=== PATIENT | female | born 1970 | race Two or more races ===

== ENCOUNTER 2024-04-30 16:19 | Inpatient (IN) | payer MEDICAID ==
[~2024-04-30] VITALS: Ht 160 cm; Wt 56.9 kg
[~2024-04-30 16:19] MED LIST: METO25TA36 PO; PROP1TAB51 PO
[2024-04-30 16:49] LABS: Basophils # (auto) 0 10 ^3/uL (0-0.2); Basophils % (auto) 0.8 % (0.0-2.0); Eosinophils # (auto) 0.2 10 ^3/uL (0-0.8); Eosinophils % (auto) 3.5 % (0.0-7.0); Hematocrit 41.6 % (36.0-46.0); Hemoglobin 13.5 g/dL (12.2-16.2); Lymphocytes # (auto) 2.2 10 ^3/uL (0.4-5.4); Lymphocytes % (auto) 41.2 % (10.0-50.0); Mean Corpuscular Hemoglobin 27.6 pg (28.0-32.0); Mean Corpuscular Hgb Conc. 32.5 g/dL (32.0-36.0); Mean Corpuscular Volume 84.8 fL (80.0-100.0); Monocytes # (auto) 0.9 10 ^3/uL (0-1.3); Monocytes % (auto) 16.9 % (0.0-12.0); Neutrophils % (auto) 37.6 % (37.0-80.0); Nucleated Red Blood Cells % 0.1 %; Platelet Count (auto) 277 10^3/uL (140-450); White Blood Cell 5.3 10^3/uL (4.4-10.8)
--- NOTE | 2024-04-30 16:53 | ED.PDOC ---
HPI Comments 53y F who presents to the ED for chief complaint of chest pain. Pt states she has been have palpitations for the past 3-4 hours. Pt states she has been having these symptoms for the past 1 week intermittently. Pt states she was seen at 1 week prior and discharged. Pt states the following day, she started having symptoms and went to [facility] and states she was diagnosed with thyroid condition and given medications and discharged. Pt now in the ED, noted to be in AFIB per EKG with noted history of AFIB and states she is having palpitations now. Pt in the ED, has noted elevated heart rate of 134 in the ED with all other vitals in normal range. Pt otherwise denies any other symptoms at this time. Chief Complaint: Chest Pain Time Seen by MD: 16:46 Primary Care Provider: AVILA Ricks Notes: Medications, Allergies Allergies: Coded Allergies: Allopurinol (Verified Allergy, Unknown, 04/26/24) Home Meds Active Scripts Propranolol HCl (Propranolol Hydrochloride) 10 Mg Tab, 10 MG PO BID PRN for 30 Days, #60 TAB Prov:IGNACIO BERNAL 04/26/24 Metoprolol Succinate (Toprol Xl) 25 Mg Tab, 1 TAB PO DAILY, #90 TAB 1 Refill Prov:IGNACIO BERNAL 04/26/24 Information Source: Patient Mode of Arrival: Ambulatory Brought in by: self Past Medical History PAST MEDICAL HISTORY: AFIB, HTN Surgical History: Unknown 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 Family History Family History: Reviewed,noncontributory to illness Social History Smoker: Non-Smoker Alcohol: Denies ETOH Use Drugs: Denies Drug Use Lives In: Home Constitutional: denies: chills, diaphoresis, fatigue, fever, malaise, sweats, weakness, others EENTM: denies: blurred vision, double vision, ear bleeding, ear discharge, ear drainage, ear pain, ear ringing, eye pain, eye redness, hearing loss, mouth pain, mouth swelling, nasal discharge, nose bleeding, nose congestion, nose pain, photophobia, tearing, throat pain, throat swelling, voice changes, others Respiratory: denies: cough, hemoptysis, orthopnea, SOB at rest, shortness of breath, SOB with excertion, stridor, wheezing, others Cardiovascular: reports: chest pain; denies: dizzy spells, diaphoresis, Dyspnea on exertion, edema, irregular heart beat, left arm pain, lightheadedness, palpitations, PND, syncope, others Gastrointestinal: denies: abdomen distended, abdominal pain, blood streaked bowels, constipated, diarrhea, dysphagia, difficulty swallowing, hematemesis, melena, nausea, poor appetite, poor fluid intake, rectal bleeding, rectal pain, vomiting, others Genitourinary: denies: abnormal vagina bleeding, burning, dyspareunia, dysuria, flank pain, frequency, hematuria, incontinence, pain, , vagina discharge, urgency, others Neurological: denies: dizziness, fainting, headache, left sided numbness, left sided weakness, numbness, paresthesia, pre-existing deficit, right sided numbness, right sided weakness, seizure, speech problems, tingling, tremors, weakness, others Musculoskeletal: denies: back pain, gout, joint pain, joint swelling, muscle pain, muscle stiffness, neck pain, others Integumetry: denies: bruises, change in color, change in hair/nails, dryness, laceration, lesions, lumps, rash, wounds, others Allergic/Immunocompromised: denies: Difficulty Healing, Frequent Infections, Hives, Itching, others Hematologic/Lymphatic: denies: anemia, blood clots, easy bleeding, easy bruising, swollen glands, others Endocrine: denies: excessive hunger, excessive sweating, excessive thirst, excessive urination, flushing, intolerance to cold, intolerance to heat, unexplained weight gain, unexplained weight loss, others Psychiatric: denies: anxiety, bipolar disorder, depression, hopeless, panic disorder, schizophrenia, sleepless, suicidal, others All Other Systems: Reviewed and Negative Physical Exam General Appearance: Moderate Distress HEENT: Normal ENT Inspection, Pharynx Normal, TMs Normal Neck: Full Range of Motion, Non-Tender, Normal, Normal Inspection Respiratory: Chest Non-Tender, Lungs Clear, No Accessory Muscle Use, No Respiratory Distress, Normal Breath Sounds Cardiovascular: Tachycardia, Other (irregularly irregular) Breast Exam: Deferred Gastrointestinal: No Organomegaly, Non Tender, No Pulsatile Mass, Normal Bowel Sounds, Soft Genitalia: Deferred Pelvic: Deferred Rectal: Deferred Extremities: No calf tenderness, Normal capillary refill, Normal inspection, Normal range of motion, Non-tender, No pedal edema Musculoskeletal : Apperance: Normal Neurologic: Alert, software build engineer II-XII nml as Tested, No Motor Deficits, Normal Affect, Normal Mood, No Sensory Deficits Cerebellar Function: Normal Reflexes: Normal Skin: Dry, Normal Color, Warm Lymphatic: No Adenopathy Was a procedure done? Was a procedure done?: No CP Differential Dx Differential Diagnosis: A-fib, A-Flutter, Angina, Anxiety / Panic Attack, Atrial Dysrhythmia, PVC's X-Ray, Labs, Meds, VS Vital Signs Date Time Temp Pulse Resp B/P (MAP) Pulse Ox O2 Delivery O2 Flow Rate FiO2 04/30/24 17:19 136 04/30/24 17:15 65 16 97 Room Air* 0 21 04/30/24 17:13 65 04/30/24 17:13 65 16 107/85 (92) 97 04/30/24 16:28 134 04/30/24 16:23 98.3 72 22 124/60 (81) 100 Lab Test 04/30/24 17:47 04/30/24 16:36 Range/Units Troponin I High Sensitivity Pending 7 </=34 ng/L White Blood Count 5.3 4.4-10.8 10^3/uL Red Blood Count 4.90 4.0-5.20 10^6/uL Hemoglobin 13.5 12.2-16.2 g/dL Hematocrit 41.6 36.0-46.0 % Mean Corpuscular Volume 84.8 80.0-100.0 fL Mean Corpuscular Hemoglobin 27.6 L 28.0-32.0 pg Mean Corpuscular Hemoglobin Concent 32.5 32.0-36.0 g/dL Red Cell Distribution Width 14.0 11.8-14.3 % Platelet Count 277 140-450 10^3/uL Mean Platelet Volume 8.5 6.9-10.8 fL Neutrophils (%) (Auto) 37.6 37.0-80.0 % Lymphocytes (%) (Auto) 41.2 10.0-50.0 % Monocytes (%) (Auto) 16.9 H 0.0-12.0 % Eosinophils (%) (Auto) 3.5 0.0-7.0 % Basophils (%) (Auto) 0.8 0.0-2.0 % Neutrophils # (Auto) 2.0 1.6-8.6 10 ^3/uL Lymphocytes # (Auto) 2.2 0.4-5.4 10 ^3/uL Monocytes # (Auto) 0.9 0-1.3 10 ^3/uL Eosinophils # (Auto) 0.2 0-0.8 10 ^3/uL Basophils # (Auto) 0 0-0.2 10 ^3/uL Nucleated Red Blood Cells 0.1 % Sodium Level 144 136-145 mmol/L Potassium Level 4.6 3.5-5.1 mmol/L Chloride Level 110 H 98-107 mmol/L Carbon Dioxide Level 25 20-31 mmol/L Anion Gap 9 5-15 Blood Urea Nitrogen 16 9-23 mg/dL Creatinine 0.75 0.550-1.02 mg/dL Glomerular Filtration Rate Calc 96 >90 mL/min BUN/Creatinine Ratio 21.3 H 10.0-20.0 Serum Glucose 126 H 74-106 mg/dL Calcium Level 10.9 H 8.7-10.4 mg/dL Magnesium Level 2.1 1.6-2.6 mg/dL Total Bilirubin 0.7 0.2-1.0 mg/dL Aspartate Amino Transferase (AST) 25 13-40 U/L Alanine Aminotransferase (ALT) 40 7-40 U/L Alkaline Phosphatase 87 46-116 U/L Total Protein 6.8 5.7-8.2 g/dL Albumin 4.6 3.2-4.8 g/dL Current Medications Medications (Trade) Dose Ordered Sig/Karthik Route Start Time Stop Time Status Last Admin Sodium Chloride 1,000 ml @ 1,000 mls/hr Q1H ONCE IV 04/30/24 16:45 04/30/24 17:44 DC 04/30/24 17:[address] [address] Ph: [phone] DIAGNOSTIC IMAGING Diagnostic Imaging Report : [id number] Signed PATIENT: JULIET PRINCE: [id number] UNIT: [id number] : 1970 LOC: ER ROOM / BED: / AGE / SEX: 53 / F ADM STATUS: REG ER SERVICE [id number] ORDERING PHYSICIAN: ARA ANGELA MD PROCEDURE(s): CXRP - CHEST PORTABLE REASON: chest pain ORDER NUMBER(s): [id number], ACCESSION NUMBER(s): [id number] CHEST RADIOGRAPH Indication: chest pain Technique: Single frontal view of the chest was obtained COMPARISON: None FINDINGS: Lines and Tubes: None Lungs: Clear Pleura: No effusion. No pneumothorax. Cardiomediastinal contours: Unremarkable Bones: Unremarkable IMPRESSION: 1. No acute disease. ATED BY: GARRETT ABBOTT MD DICTATED DATE/TIME: 04/30/241700 SIGNED BY: GARRETT ABBOTT MD SIGNED DATE/TIME: 04/30/241700 CC: Time of 1ST Reevaluation: 17:15 Reevaluation 1ST: Unchanged Patient Education/Counseling: Diagnosis, Treatment Family Education/Counseling: No Family Present Departure 1 Departure Time of Disposition: 18:12 (Patient presented with chest pain that was concerning for possible STEMI, ACS, PE, Pneumonia, Muscle Strain, COPD, Dissection. Data: 1. I ordered and reviewed the result of at least 3 labs including a CBC, BMP, and Troponin. 2. I independently interpreted the following tests: EKG which shows atrial fibrillation and Chest X-ray which shows benign chest.Risk:This patient has a high risk of morbidity due to further diagnostic testing or treatment and may suffer from an acute cardiac or respiratory disorder. Workup reveals cardiac arrhythmia concerning for possible ACS and patient should be admitted for further workup and possible expert consultation. ) Impression: Primary Impression: Acute chest pain Additional Impressions: Atrial fibrillation Qualified Codes: I48.0 - Paroxysmal atrial fibrillation Palpitations Disposition: ADMITTED INPATIENT Admit to: Med Surg Condition: Serious Critical Care Note Critical Care Time?: Yes Critical care comment: Chest pain Authorized and Performed by: Ara Angela MD Total critical care time: Approximately 42 minutes Due to a high probability of clinically significant, life threatening deterioration, the patient required my highest level of preparedness to intervene emergently and I personally spent this critical care time directly and personally managing the patient. This critical care time included obtaining a history; examining the patient; pulse oximetry; ordering and review of studies; arranging urgent treatment with development of a management plan; evaluation of patient's response to treatment; frequent reassessment; and, discussions with other providers. This critical care time was performed to assess and manage the high probability of imminent, life-threatening deterioration that could result in multi-organ failure. It was exclusive of separately billable procedures and treating other patients and teaching time. Please see my other sections and the rest of the note for further information on patient assessment and treatment. Stability Stability form required: No Heart Score Heart Score: Heart Score Response (Comments) Value History Moderate Suspicious 1 EKG Repolarization Disturb 1 Age 45-64 1 Risk Factors 1 or 2 risk factors 1 Troponin 1-2 x's Normal limit 1 Total 5 I personally scribed for ARA ANGELA MD ([facility]) on 04/30/24 at 16:53. Electronically submitted by Carter Cruz ([email or web address]). I personally scribed for ARA ANGELA MD ([email or web address]) on 04/30/24 at 18:09. Electronically submitted by Carter Cruz ([email or web address]). ARA ANGELA MD Apr 30, 2024 16:53
[2024-04-30 17:03] LABS: Alanine Aminotransferase 40 U/L (7-40); Albumin 4.6 g/dL (3.2-4.8); Alkaline Phosphatase 87 U/L (46-116); Anion Gap 9 (5-15); Aspartate Aminotransferase 25 U/L (13-40); BUN/Creatinine Ratio 21.3 (10.0-20.0); Bilirubin, Total 0.7 mg/dL (0.2-1.0); Blood Urea Nitrogen 16 mg/dL (9-23); Calcium 10.9 mg/dL (8.7-10.4); Carbon Dioxide 25 mmol/L (20-31); Chloride 110 mmol/L (98-107); Glucose 126 mg/dL (74-106); Magnesium 2.1 mg/dL (1.6-2.6); Potassium 4.6 mmol/L (3.5-5.1); Sodium 144 mmol/L (136-145); Total Protein 6.8 g/dL (5.7-8.2)
--- NOTE | 2024-04-30 17:04 | DVH ---
CHEST RADIOGRAPH Indication: chest pain Technique: Single frontal view of the chest was obtained COMPARISON: None FINDINGS: Lines and Tubes: None Lungs: Clear Pleura: No effusion. No pneumothorax. Cardiomediastinal contours: Unremarkable Bones: Unremarkable IMPRESSION: 1. No acute disease.
[2024-04-30] MEDS: SODIUM CHLORIDE 0.9% 1,000 ML IV ONE (17:10)
[2024-04-30 17:15] VITALS: PULSE 65; RESP 16; O2SAT 97
--- NOTE | 2024-04-30 18:40 | ECG ---
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
[2024-04-30 20:35] VITALS: BP 123/60; PULSE 139; RESP 20; TEMP 97.5; O2SAT 98
[2024-04-30] MEDS ORDERED: ONDANSETRON HCL 4 MG/2 ML VIAL IV PRN (23:30)
[2024-04-30] MEDS ORDERED: MORPHINE SULFATE INJ 2 MG/ml SYRG IV PRN ×2 (23:30)
[2024-04-30] MEDS ORDERED: DOCUSATE SOD 100 MG CAP PO PRN (23:30)
[2024-04-30] MEDS ORDERED: NITROGLYCERIN 0.4 MG SL TAB SL PRN (23:30)
[2024-04-30] MEDS ORDERED: HYDROcodone-ACET 5/325MG TAB PO PRN (23:30)
--- NOTE | 2024-04-30 23:31 | DVHHP2 ---
History of Present Illness Reason for Visit: Acute chest pain History of Present Illness The patient is a 53-year-old female with past medical history of AFib and hypertension who presented to [facility] ED with complaint of chest pain. Patient reports she has been have palpitations for the past 3-4 hours, these symptoms for the past 1 week intermittently. She was seen at here 1 week prior and discharged. The following day, she started having symptoms again and went to [facility] and was diagnosed with thyroid condition, given medications and discharged. Patient was seen and evaluated in the ED with palpitations, elevated heart rate of 134, blood pressure 107/85, temperature 98.3 F, O2 saturation 97% on room air, WBC 5.3, platelets 277, sodium 144, potassium 4.6, BUN 16, creatinine 0.75, glucose 126, calcium 10.9, troponin 7. Please see medication orders section in the computer. On my assessment, patient denied chest pain at this moment, no headache, no dizziness, no diaphoresis, no shortness of breath, no nausea, no vomiting, no fever, no chills. Patient was admitted for further evaluation and medical management. Past Medical History AFIB, HTN Past Surgical History Denies all surgeries Family History Reviewed, noncontributory to the management of this case. Past Social History The patient lives at home, denies smoking, alcohol or illicit drugs abuse. Review of Systems Constitutional: No: Fever, Chills, Sweats, Weakness, Malaise, Other Eyes: No: Pain, Vision change, Conjunctivae inflammation, Eyelid inflammation, Other, Redness ENT: No: Ear pain, Ear discharge, Nose pain, Nose discharge, Nose congestion, Mouth pain, Mouth swelling, Throat pain, Throat swelling, Other Respiratory: No: Cough, Dry, Shortness of breath, SOB with excertion, Wheezing, Hemoptysis, Pleuritic Pain, Sputum, Wheezing, Other Cardiovascular: Chest Pain; No: Palpitations, Orthopnea, Paroxysmal Noc. Dyspnea, Edema, Lt Headedness, Other Gastrointestinal: No: Nausea, Vomiting, Abdominal Pain, Diarrhea, Constipation, Melena, Hematochezia, Other Genitourinary: No Dysuria, No Frequency, No Incontinence, No Hematuria, No Retention, No Other Musculoskeletal: No: other, neck pain, shoulder pain, arm pain, back pain, hand pain, leg pain, foot pain Skin: No: Rash, Lesions, Jaundice, Bruising, Other Neurological: No: Weakness, Numbness, Incoordination, Change in speech, Confusion, Seizures, Other Allergies: Coded Allergies: Allopurinol (Verified Allergy, Unknown, 04/26/24) Exam Vital Signs Vital Signs Date Time Temp Pulse Resp B/P (MAP) Pulse Ox O2 Delivery O2 Flow Rate FiO2 04/30/24 20:11 145 04/30/24 17:15 16 97 Room Air* 0 21 04/30/24 17:13 107/85 (92) 04/30/24 16:23 98.3 General Appearance: Alert, Oriented X3, Cooperative, No acute distress HEENT: Atraumatic, PERRLA, EOMI, Mucous membr. moist/pink Respiratory: Clear to auscultation, Normal air movement Cardiovascular: Regular rate, Normal S1, Normal S2, No murmurs Abdominal: Normal bowel sounds, Soft, No tenderness, No hepatospenomegaly, No masses Extremities: No clubbing, No cyanosis, No edema, Normal pulses, No tenderness/swelling Skin: No rashes, No breakdown, No significant lesion Neuro: Normal gait, Normal speech, Strength at 5/5 X4 ext, Normal tone, Sensation intact, Cranial nerves 3-12 NL, Reflexes 2+ Psych/Mental Status: Mental status NL, Mood NL Labs/Xrays Labs Test 04/30/24 19:28 04/30/24 16:36 Range/Units Troponin I High Sensitivity 7 </=34 ng/L White Blood Count 5.3 4.4-10.8 10^3/uL Red Blood Count 4.90 4.0-5.20 10^6/uL Hemoglobin 13.5 12.2-16.2 g/dL Hematocrit 41.6 36.0-46.0 % Mean Corpuscular Volume 84.8 80.0-100.0 fL Mean Corpuscular Hemoglobin 27.6 L 28.0-32.0 pg Mean Corpuscular Hemoglobin Concent 32.5 32.0-36.0 g/dL Red Cell Distribution Width 14.0 11.8-14.3 % Platelet Count 277 140-450 10^3/uL Mean Platelet Volume 8.5 6.9-10.8 fL Neutrophils (%) (Auto) 37.6 37.0-80.0 % Lymphocytes (%) (Auto) 41.2 10.0-50.0 % Monocytes (%) (Auto) 16.9 H 0.0-12.0 % Eosinophils (%) (Auto) 3.5 0.0-7.0 % Basophils (%) (Auto) 0.8 0.0-2.0 % Neutrophils # (Auto) 2.0 1.6-8.6 10 ^3/uL Lymphocytes # (Auto) 2.2 0.4-5.4 10 ^3/uL Monocytes # (Auto) 0.9 0-1.3 10 ^3/uL Eosinophils # (Auto) 0.2 0-0.8 10 ^3/uL Basophils # (Auto) 0 0-0.2 10 ^3/uL Nucleated Red Blood Cells 0.1 % Sodium Level 144 136-145 mmol/L Potassium Level 4.6 3.5-5.1 mmol/L Chloride Level 110 H 98-107 mmol/L Carbon Dioxide Level 25 20-31 mmol/L Anion Gap 9 5-15 Blood Urea Nitrogen 16 9-23 mg/dL Creatinine 0.75 0.550-1.02 mg/dL Glomerular Filtration Rate Calc 96 >90 mL/min BUN/Creatinine Ratio 21.3 H 10.0-20.0 Serum Glucose 126 H 74-106 mg/dL Calcium Level 10.9 H 8.7-10.4 mg/dL Magnesium Level 2.1 1.6-2.6 mg/dL Total Bilirubin 0.7 0.2-1.0 mg/dL Aspartate Amino Transferase (AST) 25 13-40 U/L Alanine Aminotransferase (ALT) 40 7-40 U/L Alkaline Phosphatase 87 46-116 U/L Total Protein 6.8 5.7-8.2 g/dL Albumin 4.6 3.2-4.8 g/dL PATIENT: DAVINA PRINCET: [id number] UNIT: [id number] : 1970 LOC: ER ROOM / BED: / AGE / SEX: 53 / F ADM STATUS: REG ER SERVICE 1625 ORDERING PHYSICIAN: ARA ANGELA MD PROCEDURE(s): CXRP - CHEST PORTABLE REASON: chest pain ORDER NUMBER(s): [id number], ACCESSION NUMBER(s): [id number] CHEST RADIOGRAPH Indication: chest pain Technique: Single frontal view of the chest was obtained COMPARISON: None FINDINGS: Lines and Tubes: None Lungs: Clear Pleura: No effusion. No pneumothorax. Cardiomediastinal contours: Unremarkable Bones: Unremarkable IMPRESSION: 1. No acute disease. Assessment/Plan Assessment/Plan Acute chest pain Palpitations Atrial fibrillation Paroxysmal atrial fibrillation Plan 1. Admit to telemetry unit 2. Breathing treatment 3. Pain control management 4. Management of fluids and electrolytes 5. Consultation for hospitalist 6. Diagnostic tests-chest x-ray 7. DVT prophylaxis-on aspirin 8. Repeat labs CBC, CMP in a.m. 9. Continue with current medical management 10. Treatment plan discussed with patient and RN. Patient verbalized understand ing. Plan discussed with: Patient, Other (RN) Problem List: (1) Palpitations (2) Acute chest pain (3) Atrial fibrillation (4) Paroxysmal atrial fibrillation Date of Service: Apr 30, 2024 Billing Provider: DAVID ORLANDO DNP Common Visit Codes: 70226-[id number] INP/OBS CARE (HIGH) DAVID ORLANDO DNP Apr 30, 2024 23:31
[2024-04-30] MEDS ORDERED: METO25TA93 PO (23:46)
[2024-04-30] MEDS ORDERED: MAGN241.6 PO (23:47)
[2024-04-30] MEDS ORDERED: POTA-180 PO (23:47)
[2024-05-01] VITALS (9 sets, daily range): BP systolic 93–127; BP diastolic 45–61; PULSE 78–86; RESP 16–20; TEMP 97.6–98.4; O2SAT 95–98
--- NOTE | 2024-05-01 00:22 | ECG ---
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
--- NOTE | 2024-05-01 03:46 | ECG ---
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
[2024-05-01] MEDS: ACETAMINOPHEN 325 MG TAB PO PRN (04:36)
[2024-05-01 05:35] LABS: Basophils # (auto) 0 10 ^3/uL (0-0.2); Basophils % (auto) 1.1 % (0.0-2.0); Eosinophils # (auto) 0.2 10 ^3/uL (0-0.8); Eosinophils % (auto) 5.5 % (0.0-7.0); Hematocrit 36.5 % (36.0-46.0); Hemoglobin 11.9 g/dL (12.2-16.2); Lymphocytes # (auto) 1.7 10 ^3/uL (0.4-5.4); Lymphocytes % (auto) 40.7 % (10.0-50.0); Mean Corpuscular Hemoglobin 27.6 pg (28.0-32.0); Mean Corpuscular Hgb Conc. 32.6 g/dL (32.0-36.0); Mean Corpuscular Volume 84.9 fL (80.0-100.0); Neutrophils # (auto) 1.2 10 ^3/uL (1.6-8.6); Neutrophils % (auto) 29.3 % (37.0-80.0); Platelet Count (auto) 237 10^3/uL (140-450); Red Cell Distribution Width 13.8 % (11.8-14.3); White Blood Cell 4.1 10^3/uL (4.4-10.8)
[2024-05-01] MEDS: SODIUM CHLOR 0.9% PF (SALINE LOCK) 10ML VIAL/SYR IV SCH (05:37)
[2024-05-01 05:53] LABS: Alanine Aminotransferase 29 U/L (7-40); Alkaline Phosphatase 71 U/L (46-116); Anion Gap 8 (5-15); BUN/Creatinine Ratio 20.3 (10.0-20.0); Blood Urea Nitrogen 14 mg/dL (9-23); Calcium 9.7 mg/dL (8.7-10.4); Carbon Dioxide 25 mmol/L (20-31); Chloride 112 mmol/L (98-107); Glucose 110 mg/dL (74-106); Potassium 4.2 mmol/L (3.5-5.1); Sodium 145 mmol/L (136-145)
[2024-05-01 05:54] LABS: Albumin 3.8 g/dL (3.2-4.8)
[2024-05-01 05:55] LABS: Aspartate Aminotransferase 20 U/L (13-40); Bilirubin, Total 0.8 mg/dL (0.2-1.0); Total Protein 5.9 g/dL (5.7-8.2)
[2024-05-01 06:09] LABS: Monocytes % (auto) 23.4 % (0.0-12.0)
[2024-05-01] MEDS ORDERED: ASPirin 81 mg TAB PO SCH (10:00)
[2024-05-01] MEDS: APIXABAN 5 MG TAB PO SCH (10:05)
[2024-05-01] MEDS: METOPROLOL TARTRATE 50 MG TAB PO SCH (10:24)
--- NOTE | 2024-05-01 12:07 | DVH ---
Exam: US SOFT TISSUE NECK Clinical History: Left neck Comparison: None Technique: Targeted sonographic evaluation of the soft tissues of the left neck was obtained utilizing grayscal e and color Doppler imaging. Findings/Impression: Hypoechoic structure in the left neck measures 1.2 x 0.8 x 0.6 cm possibly representing a lymph node. Clinical correlation advised.
--- NOTE | 2024-05-01 12:07 | DVH ---
ULTRASOUND SOFT TISSUE HEAD AND NECK CLINICAL INDICATION: Thyroid nodules TECHNIQUE: Multiple real time sonographic images of the thyroid were obtained. Comparison: None FINDINGS: The right thyroid gland measures 4.2 x 1.7 x 1.6 cm. The left thyroid gland measures approximately 3.8 x 1.2 x 1.4 cm. The isthmus measures 0.5 cm. Isoechoic nodule in the right upper pole measures 0.5 cm, TR 3. Hypoechoic nodule in the right midpole measures 0.6 cm, TR 4. Mixed cystic and solid nodule in the left thyroid measures 0.7 cm, TR 3. Hypoechoic nodule in the left lower pole measures 0.8 cm, TR 4. IMPRESSION: Subcentimeter TR 3 and TR 4 nodules, as above. [employer] TI-RADS Categories and Recommendations (2017): TR1: 0 points, Benign, No FNA TR2: 2 points, Not suspicious, No FNA TR3: 3 points, Mildly suspicious, FNA if > or = 2.5 cm, Follow if > or = 1.5 cm TR4: 4-6 points, Moderately Suspicious, FNA if > or = 1.5 cm, Follow if > or = 1.0 cm TR5: 7+ points, Highly Suspicious, FNA if > or = 1.0 cm, Follow if > or = 0.5 cm Follow-up ultrasound guidelines: TR5: yearly for 5 years, if no growth or change in TI-RADS level TR4: at 1, 2, 3 and 5 years, if no growth or change in TI-RADS level TR3: at 1, 3 and 5 years, if no growth or change in TI-RADS level If increased but below threshold for FNA, repeat in one year. Source: ACR Thyroid Imaging, Reporting and Data System (TI-RADS): White Paper of the ACR TI-RADS Committee. Katherine et al., J Am Vale Radiol 2017;14:587-595.
--- NOTE | 2024-05-01 16:45 | DVHPNRES ---
Progress Note Date Seen: May 01, 2024 Resident Creating Document: ANNABELLE TAYLOR RESIDENT Has the PT tested + for MRSA If YES, has PT been informed?: No Medical Necessity Reason Pt with a Central, PICC or Fol: No Subjective Review of Systems 53y F who presents to the ED for chief complaint of chest pain. Pt states she has been have palpitations for the past 3-4 hours. Pt states she has been having these symptoms for the past 1 week intermittently. Pt states she was seen at 1 week prior and discharged. Pt states the following day, she started having symptoms and went to [facility] and states she was diagnosed with thyroid condition and given medications and discharged?. Pt in the ED, noted to be in AFIB per EKG with noted history of AFIB and states she is having palpitations, right now the RV is controlled and the symptoms are subsided. Home meds: Magnesium metoprolol 25 potassium propranolol 10 t.i.d. Objective vital signs Vital Sign Date Time Temp Pulse Resp B/P (MAP) Pulse Ox O2 Delivery O2 Flow Rate FiO2 05/01/24 13:00 98.0 80 18 93/55 (68) 97 98.0 05/01/24 08:00 Room Air* 0 21 Total Intake and Output 04/30/24 04/30/24 05/01/24 15:00 23:00 07:00 Intake Total 1000 ml 250 ml Balance 1000 ml 250 ml medications Current Medications Medications Dose Ordered Sig/Karthik Route Start Time Stop Time Status Last Admin Dose Admin Sodium Chloride 10 ml Q8HR IV 05/01/24 06:00 05/01/24 16:16 10 ML Acetaminophen/ Hydrocodone Bitart 1 tab Q4HP PRN PO 04/30/24 23:30 Acetaminophen 650 mg Q6HP PRN PO 04/30/24 23:30 05/01/24 10:30 650 MG Apixaban 5 mg BID PO 05/01/24 10:00 05/01/24 10:05 5 MG Propranolol HCl 10 mg TID PO 05/01/24 22:00 UNV Examination GEN: Healthy appearing, well-developed, NAD. PSYCH: Good Judgment. AOx3. Normal memory, mood, and affect. HEENT -Head: normocephalic atraumatic, no facial trauma, neck lymphadenopathy in left neck, thyroid non enlarge -Eyes: PERRL, EOMI. No discharge or redness; -Ears: External ears are normal. Normal TMs. -Nose: Normal nares. -Mouth and throat: MMM. Normal gums, mucosa, palate,. Good dentition. NECK: Supple, with no masses. CV: RRR, no m/r/g. LUNGS: respiratory effort normal, speaks in full sentences, no tripod position, no accessory muscle use. Lungs clear to auscultation without rhonchi, wheezes, rales ABD: Soft, ND/NT. No evidence of fluid wave. No pulsatile masses on exam, rebound tenderness, Henry sign or pain over Mcburney's point. : N/A SKIN: Warm, well perfused. No skin rashes or abnormal lesions. MSK: No deformities or signs of scoliosis. Normal gait. EXT: No clubbing, cyanosis, or edema. NEURO: Ambulating with no limitations. Normal muscle strength and tone. No focal deficits. 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 The left thyroid gland measures approximately 3.8 x 1.2 x 1.4 cm. The isthmus measures 0.5 cm. Isoechoic nodule in the right upper pole measures 0.5 cm, TR 3. Hypoechoic nodule in the right midpole measures 0.6 cm, TR 4. Mixed cystic and solid nodule in the left thyroid measures 0.7 cm, TR 3. Hypoechoic nodule in the left lower pole measures 0.8 cm, TR 4. Soft neck US: Hypoechoic structure in the left neck measures 1.2 x 0.8 x 0.6 cm possibly representing a lymph node. Clinical correlation advised. Case discussed with Dr Ludwig Time spent on care 23 min Plan discussed with: Patient, Other (rn) My Orders My Orders Orders - ANNABELLE TAYLOR Procedure Category Date Status Time Free T4 (Free LAB 05/01/24 In Process Thyroxine) 08:01 Free T3 LAB 05/01/24 In Process 08:38 Thyroid US 05/01/24 Resulted 08:42 Electrocardigram EKG 05/01/24 Logged 08:46 Apixaban (Eliquis) PHA 05/01/24 In Process 10:00 Soft Tissue Neck US 05/01/24 Resulted 10:36 Propranolol Hcl PHA 05/01/24 Logged Tablet (Inderal 22:00 Date of Service: May 01, 2024 Billing Provider: CEDRICK LUDWIG MD Common Visit Codes: [id number] INP/OBS CARE(HIGH) ANNABELLE TAYLOR RESIDENT May 01, 2024 16:45 CEDRICK LUDWIG MD May 01, 2024 21:11
[2024-05-01] MEDS ORDERED: PROPRANOLOL HCL 20 MG TAB PO SCH (18:00)
--- NOTE | 2024-05-01 18:46 | DVHSR ---
APPROVED REPORT EXAM: Two-dimensional and M-mode echocardiogram with Doppler and color Doppler. Blood Pressure: 127/61 mmHg INDICATION Atrial Fibrillation RISK FACTORS Height: 5' 3", Weight: 115 DIMENSIONS LVDd4.4 (3.8-5.7cm)LA (2D)3.6 (1.9-4.0cm)Aortic Root3.3 (2.0-3.7cm) LVDs3.1 (2.5-4.0cm)LA (MM) (1.9-4.0cm)Aortic Cusp Exc1.7 (1.5-2.0cm) EF (%) 56.0 (55-70%)Rt. Atrium3.8 (1.9-4.0cm)Asc. Aorta cm IVSd0.9 (0.7-1.1cm)RV (D) (1.8-2.4cm) PWd0.8 (0.7-1.1cm) Mitral Valve MitralMitral Stenosis E wave0.90m/sMV Mean GR.mmHg A wave0.50m/sMV Peak GR.mmHg E/A ratio1.82D MVAcm2 Aortic Valve Aortic ValveAortic Stenosis V10.50m/Javid Mean GR.2mmHg V20.90m/Javid Peak GR.4mmHg LVOT Diameter2.2 (1.8-2.4cm)Doppler AVA2.11cm2 Pulmonic Valve V20.40m/s Tricuspid Valve TR Velocity2.40m/s [id number] Conclusion NORMAL LV EJECTION FRACTION OF 65% NORMAL VALVES NO EFFUSION NORMAL RV FUNCTION AND SIZE NORMAL RVSP OF 30 MM OF HG NORMAL STUDY
[2024-05-01] MEDS: PROPRANOLOL HCL 20 MG TAB PO SCH (22:25)
[2024-05-02 05:00] VITALS: BP 97/50; PULSE 89; RESP 18; TEMP 97.4; O2SAT 95
[2024-05-02 06:41] LABS: Hematocrit 36.7 % (36.0-46.0); Hemoglobin 12.1 g/dL (12.2-16.2); Mean Corpuscular Hgb Conc. 32.8 g/dL (32.0-36.0); Mean Corpuscular Volume 85.3 fL (80.0-100.0); Platelet Count (auto) 236 10^3/uL (140-450); Red Cell Distribution Width 13.7 % (11.8-14.3); White Blood Cell 3.8 10^3/uL (4.4-10.8)
[2024-05-02 07:02] LABS: Band Neutrophils % (manual) 0; Basophils % (manual) 0 (0.0-2.0); Blast Cells 0; Metamyelocytes % 0; Myelocytes % 0; Promyelocytes % 0; Reactive Lymphocytes 0
[2024-05-02 07:15] LABS: Anion Gap 7 (5-15); Carbon Dioxide 27 mmol/L (20-31); Chloride 110 mmol/L (98-107); Potassium 3.9 mmol/L (3.5-5.1); Sodium 144 mmol/L (136-145)
[2024-05-02 07:16] LABS: Calcium 9.8 mg/dL (8.7-10.4)
[2024-05-02 07:21] LABS: BUN/Creatinine Ratio 19.4 (10.0-20.0); Blood Urea Nitrogen 12 mg/dL (9-23); Glucose 119 mg/dL (74-106)
[2024-05-02 08:00] VITALS: PULSE 75; PULSE 89; RESP 18; O2SAT 94
[2024-05-02 08:39] LABS: Eosinophils % (manual) 8 (0-7); Lymphocytes % (manual) 36 (10.0-50.0); Monocytes % (manual) 22 (0-12); Platelet Estimate Adequate; RBC Morphology Normal
[2024-05-02 09:20] VITALS: BP 106/40; PULSE 74; RESP 16; TEMP 98.4; O2SAT 96
[2024-05-02] MEDS: methIMAzole 5 MG TAB PO SCH (09:49)
[2024-05-02] MEDS ORDERED: methIMAzole 5 MG TAB PO SCH (10:00)
[2024-05-02 13:00] VITALS: BP 106/57; PULSE 80; RESP 17; TEMP 98.2; O2SAT 98
[2024-05-02 13:17] VITALS: BP 106/57; PULSE 80; RESP 17; TEMP 98.2; O2SAT 98
[2024-05-02] MEDS ORDERED: METH5TAB98 PO (13:20)
[2024-05-02] MEDS ORDERED: APIX5TAB PO (13:20)
[2024-05-02] MEDS ORDERED: PROP1TAB53 PO (13:20)
[2024-05-02 13:58] VITALS: BP 106/57; PULSE 80; RESP 17; TEMP 98.2; O2SAT 98
--- NOTE | 2024-05-02 14:59 | DVHDSRES ---
Discharge Summary Date of Admission Resident Creating Document: ANNABELLE TAYLOR RESIDENT Apr 30, 2024 at 23:28 Date of Discharge: May 02, 2024 Admitting Diagnosis afib with rvr Labs/Diagnostic Data: Laboratory Results Test 05/02/24 11:30 05/02/24 06:05 05/01/24 05:06 04/30/24 19:28 White Blood Count 3.8 10^3/uL (4.4-10.8) Red Blood Count 4.30 10^6/uL (4.0-5.20) Hemoglobin 12.1 g/dL (12.2-16.2) Hematocrit 36.7 % (36.0-46.0) Mean Corpuscular Volume 85.3 fL (80.0-100.0) Mean Corpuscular Hemoglobin 28.0 pg (28.0-32.0) Mean Corpuscular Hemoglobin Concent 32.8 g/dL (32.0-36.0) Red Cell Distribution Width 13.7 % (11.8-14.3) Platelet Count 236 10^3/uL (140-450) Mean Platelet Volume 8.7 fL (6.9-10.8) Neutrophils (%) (Auto) % (37.0-80.0) Lymphocytes (%) (Auto) % (10.0-50.0) Monocytes (%) (Auto) % (0.0-12.0) Basophils (%) (Auto) % (0.0-2.0) Neutrophils # (Auto) 10 ^3/uL (1.6-8.6) Lymphocytes # (Auto) 10 ^3/uL (0.4-5.4) Monocytes # (Auto) 10 ^3/uL (0-1.3) Differential Total Cells Counted 100.0 (100) Neutrophils % (Manual) 34 (37.0-80.0) Band Neutrophils % (Manual) 0 Lymphocytes % (Manual) 36 (10.0-50.0) Monocytes % (Manual) 22 (0-12) Eosinophils % (Manual) 8 (0-7) Basophils % (Manual) 0 (0.0-2.0) Metamyelocytes % (manual) 0 Myelocytes % (Manual) 0 Promyelocytes % (Manual) 0 Blast Cells % (Manual) 0 Reactive Lymphocytes 0 Platelet Estimate Adequate Red Blood Cell Morphology Normal Sodium Level 144 mmol/L (136-145) Potassium Level 3.9 mmol/L (3.5-5.1) Chloride Level 110 mmol/L (98-107) Carbon Dioxide Level 27 mmol/L (20-31) Anion Gap 7 (5-15) Blood Urea Nitrogen 12 mg/dL (9-23) Creatinine 0.62 mg/dL (0.550-1.02) Glomerular Filtration Rate Calc 107 mL/min (>90) BUN/Creatinine Ratio 19.4 (10.0-20.0) Serum Glucose 119 mg/dL (74-106) Calcium Level 9.8 mg/dL (8.7-10.4) Eosinophils (%) (Auto) 5.5 % (0.0-7.0) Eosinophils # (Auto) 0.2 10 ^3/uL (0-0.8) Basophils # (Auto) 0 10 ^3/uL (0-0.2) Nucleated Red Blood Cells 0.0 % Total Bilirubin 0.8 mg/dL (0.2-1.0) Aspartate Amino Transferase (AST) 20 U/L (13-40) Alanine Aminotransferase (ALT) 29 U/L (7-40) Alkaline Phosphatase 71 U/L (46-116) Total Protein 5.9 g/dL (5.7-8.2) Albumin 3.8 g/dL (3.2-4.8) Thyroid Stimulating Hormone (TSH) 0.01 uIU/mL (0.55-4.78) Troponin I High Sensitivity 7 ng/L (</=34) Test 04/30/24 16:36 Magnesium Level 2.1 mg/dL (1.6-2.6) Other Laboratory Tests 05/02/24 06:05 Brief Hx & Hospital Course: A 53-year-old female with a past medical history of atrial fibrillation (AFib), hypertension, history of lymphoma in remission two years ago, and 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 She had been experiencing intermittent symptoms for a week and was initially seen at another hospital, where she was diagnosed with thyroid dysfunction, prescribed medications, and discharged. On presentation to our emergency department, she had a heart rate of 134, blood pressure of 107/85, and lab findings significant for suppressed TSH (0.01), elevated free T4 (5.16), and free T3 (17.79). Thyroid ultrasound revealed multiple nodules, including a hypoechoic lymph node in the left neck. Thyroid peroxidase antibodies were elevated at 352, confirming hyperthyroidism. Her AFib with rapid ventricular response (RVR) was managed with rate control, achieving a heart rate in the 80s. The patient was stabilized on propranolol 10 mg three times daily and methimazole 5 mg daily, with anticoagulation initiated using apixaban 5 mg twice daily due to her AFib. She remained hemodynamically stable and asymptomatic at the time of discharge, with no further episodes of palpitations or chest pain. Instructions included strict follow-up for management of hyperthyroidism and monitoring of thyroid nodules, as well as cardiology to reassess her anticoagulation and rate control strategy. She was advised to return to the emergency department for any recurrence of symptoms, such as palpitations, chest pain, or shortness of breath. Case discussed with Dr Luz Time spent on care 23 min Operations or Procedures ULTRASOUND SOFT TISSUE HEAD AND NECK CLINICAL INDICATION: Thyroid nodules TECHNIQUE: Multiple real time sonographic images of the thyroid were obtained. Comparison: None FINDINGS: The right thyroid gland measures 4.2 x 1.7 x 1.6 cm. The left thyroid gland measures approximately 3.8 x 1.2 x 1.4 cm. The isthmus measures 0.5 cm. Isoechoic nodule in the right upper pole measures 0.5 cm, TR 3. Hypoechoic nodule in the right midpole measures 0.6 cm, TR 4. Mixed cystic and solid nodule in the left thyroid measures 0.7 cm, TR 3. Hypoechoic nodule in the left lower pole measures 0.8 cm, TR 4. IMPRESSION: Subcentimeter TR 3 and TR 4 nodules, as above. [employer] TI-RADS Categories and Recommendations (2017): TR1: 0 points, Benign, No FNA TR2: 2 points, Not suspicious, No FNA TR3: 3 points, Mildly suspicious, FNA if > or = 2.5 cm, Follow if > or = 1.5 cm TR4: 4-6 points, Moderately Suspicious, FNA if > or = 1.5 cm, Follow if > or = 1.0 cm TR5: 7+ points, Highly Suspicious, FNA if > or = 1.0 cm, Follow if > or = 0.5 cm Follow-up ultrasound guidelines: TR5: yearly for 5 years, if no growth or change in TI-RADS level TR4: at 1, 2, 3 and 5 years, if no growth or change in TI-RADS level TR3: at 1, 3 and 5 years, if no growth or change in TI-RADS level If increased but below threshold for FNA, repeat in one year. Source: ACR Thyroid Imaging, Reporting and Data System (TI-RADS): White Paper of the ACR TI-RADS Committee. Katherine et al., J Am Vale Radiol 2017;14:587-595. : Two-dimensional and M-mode echocardiogram with Doppler and color Doppler. Blood Pressure: 127/61 mmHg INDICATION Atrial Fibrillation RISK FACTORS Height: 5' 3", Weight: 115 DIMENSIONS LVDd 4.4 (3.8-5.7cm) LA (2D) 3.6 (1.9-4.0cm) Aortic Root 3.3 (2.0- 3.7cm) LVDs 3.1 (2.5-4.0cm) LA (MM) (1.9-4.0cm) Aortic Cusp Exc 1.7 (1.5- 2.0cm) EF (%) 56.0 (55-70%) Rt. Atrium 3.8 (1.9-4.0cm) Asc. Aorta cm IVSd 0.9 (0.7-1.1cm) RV (D) (1.8-2.4cm) PWd 0.8 (0.7-1.1cm) Mitral Valve Mitral Mitral Stenosis E wave 0.90m/s MV Mean GR. mmHg A wave 0.50m/s MV Peak GR. mmHg E/A ratio 1.8 2D MVA cm2 Aortic Valve Aortic Valve Aortic Stenosis V1 0.50m/s AO Mean GR. 2mmHg V2 0.90m/s AO Peak GR. 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 Patient was counseled about treatment plan, medications, possible side effects, patientverbalized understanding. All questions were answered to the best of my ability. This discharge took greater then 30 minutes in planning, reviewing documentation, counseling the patient, and discussing with other team members." ASSESSMENT ASSESSMENT Assessment afib with RVR resolved hyperthryidism thyroid nodules Date of Service: May 03, 2024 Billing Provider: CEDRICK LUZ MD Common Visit Codes: [id number] DISCH DAY >30min ANNABELLE TAYLOR RESIDENT May 02, 2024 14:59 CEDRICK LUZ MD May 04, 2024 08:14
[2024-05-03 10:06] LABS: Thyroglobulin Antibody 41.3 IU/mL (0.0-0.9)
== END 2024-05-02 14:52 | disposition home or self-care (01) | DRG 201 ==
LOC: ER 16:19 → TELE 23:28 → TELE-E-ADS 05-01 03:27
PROVIDERS: ADMIT Student in an Organized Health Care Education/Training Program; ATTEND Student in an Organized Health Care Education/Training Program
DX: I48.0 Paroxysmal atrial fibrillation (principal); E05.90 Thyrotoxicosis, unspecified without thyrotoxic crisis or storm; I10 Essential (primary) hypertension; R07.89 Other chest pain; Z88.8 Allergy status to other drugs, medicaments and biological substances; Z79.899 Other long term (current) drug therapy
CPT/HCPCS: 36415; 71045; 76536; 80048; 80053; 83735; 84439; 84443; 84445; 84481; 84484; 85007; 85025; 85027; 86376; 86800; 93005; 93306; 99291; G0378